=== PATIENT | female | born 1950 | race Two or more races ===

== ENCOUNTER 2019-11-11 20:48 | Emergency (ER) | payer MEDICARE ==
[~2019-11-11] VITALS: Ht 170.2 cm; Wt 82.0 kg
[2019-11-11 22:26] LABS: CLARITY URINE CLEAR (CLEAR); COLOR URINE YELLOW (YELLOW); KETONES URINE TRACE (NEGATIVE); LEUKOCYTE ESTERASE URINE NEGATIVE (NEGATIVE); NITRITE URINE NEGATIVE (NEGATIVE); OCCULT BLOOD URINE 1+ (NEGATIVE); PH URINE 7.5 (4.5-8.0); PROTEIN URINE NEGATIVE (NEGATIVE); SPECIFIC GRAVITY URINE 1.016 (1.005-1.030); UROBILINOGEN URINE 0.2 E.U./dL (0.2-1.0)
[2019-11-11 23:32] LABS: BASOPHILS % 0.6 % (0.0-2.0); HEMATOCRIT. 39.6 % (36.0-48.0); HEMOGLOBIN. 12.8 g/dL (12.0-16.0); LYMPHOCYTES % 9.2 % (20.0-50.0); MEAN CORPUSCULAR HEMOGLOBIN 26.5 pg (28.0-32.0); MEAN CORPUSCULAR VOLUME 82.1 fL (81.0-99.0); MEAN PLATELET VOLUME 7.4 fl (7.4-10.4); MONOCYTES % 4.4 % (2.0-8.0); NEUTROPHILS % 84.8 % (40.0-76.0); PLATELET 267 x1000/uL (130-400); RED BLOOD CELL COUNT 4.82 mill/uL (4.2-5.4); RED CELL DISTRIBUTION WIDTH 14.7 % (11.6-14.6)
[2019-11-11 23:39] LABS: CHLORIDE 108 mEq/L (98-107)
[2019-11-12 00:05] VITALS: BP 127/74
== END 2019-11-12 00:37 | disposition home or self-care (01) ==
LOC: ER 20:48
DX: N13.30 Unspecified hydronephrosis (principal); R30.9 Painful micturition, unspecified; I10 Essential (primary) hypertension
CPT/HCPCS: 36415; 74176; 80053; 81003; 85025; 99284

== ENCOUNTER 2022-04-13 05:27 | Emergency (ER) | payer MEDICARE ==
[~2022-04-13] VITALS: Ht 170.2 cm; Wt 82.0 kg
[2022-04-13] MEDS ORDERED: METHYLPREDNISOLONE SOD SUCC 125 MG/2 ML VIAL IV STA (06:51)
[2022-04-13] MEDS ORDERED: TRANEXAMIC ACID 1,000 MG/10 ML IV ONE (07:00)
[2022-04-13] MEDS ORDERED: DIPHENHYDRAMINE 50MG/ML VIAL IV ONE (07:00)
[2022-04-13 09:00] VITALS: BP 126/84
[2022-04-13] MEDS ORDERED: P20 MT (09:40)
== END 2022-04-13 11:30 | disposition home or self-care (01) ==
LOC: ER 05:27
DX: T78.3XXA Angioneurotic edema, initial encounter (principal); I10 Essential (primary) hypertension; T44.5X5A Adverse effect of predominantly beta-adrenoreceptor agonists, initial encounter; Y92.018 Other place in single-family (private) house as the place of occurrence of the external cause
CPT/HCPCS: 96374; 96375; 99284; J1200; J2930

== ENCOUNTER 2024-12-13 23:05 | Emergency (ER) | payer MEDICARE, OTHER ==
[~2024-12-13] VITALS: Ht 170.2 cm; Wt 77.0 kg
[~2024-12-13 23:05] MED LIST: P20 MT
[2024-12-13 23:26] VITALS: O2SAT 99
[2024-12-14] MEDS: ACETAMINOPHEN 500MG TABLET PO ONE (00:43)
[2024-12-14] MEDS: KETOROLAC 15MG/ML VIAL IM ONE (00:43)
[2024-12-14] MEDS: LIDOCAINE 5% PATCH TOP SCH (00:43)
[2024-12-14] MEDS ORDERED: LIDO700A30 TP (01:27)
[2024-12-14 02:11] VITALS: BP 120/76; PULSE 71; RESP 16; TEMP 36.6; O2SAT 99
== END 2024-12-14 02:11 | disposition home or self-care (01) ==
LOC: ER 23:05
DX: S39.92XA Unspecified injury of lower back, initial encounter (principal); I10 Essential (primary) hypertension; Z79.52 Long term (current) use of systemic steroids; Z96.653 Presence of artificial knee joint, bilateral; X58.XXXA Exposure to other specified factors, initial encounter; Y93.89 Activity, other specified; Y92.89 Other specified places as the place of occurrence of the external cause; Y99.8 Other external cause status
CPT/HCPCS: 99283; 96372; J1885